=== PATIENT | female | born 1985 | race Caucasian/White ===

== ENCOUNTER 2016-09-17 15:25 | Outpatient (CLI) | payer OTHER ==
--- NOTE | 2016-09-17 17:30 | DIAGNOSTIC IMAGING REPORT ---
PROCEDURE: XR FOOT 3 VIEWS - LEFT INDICATION: L FOOT PX TECHNIQUE: Three views. COMPARISON: Left foot films 01/23/2014 FINDINGS: Fracture of the proximal base of the left mid fifth metatarsal shaft and the solitary metal screw. Hallux valgus. IMPRESSION: 1. New fracture of the proximal base of the left mid fifth metatarsal shaft and the solitary metal screw. 2. Hallux valgus.
== END 2016-09-17 23:00 ==
LOC: XR SRH 15:25
DX: S92.352A Displaced fracture of fifth metatarsal bone, left foot, initial encounter for closed fracture (principal); M20.12 Hallux valgus (acquired), left foot